=== PATIENT | female | born 1955 | race Caucasian/White ===

== ENCOUNTER 2019-03-23 19:30 | Emergency (ER) | payer OTHER ==
[~2019-03-23] VITALS: Ht 162.6 cm; Wt 104.3 kg
[2019-03-23] MEDS ORDERED: JAKAFI10 MG PO (21:51)
[2019-03-23] MEDS ORDERED: PRED5 PO (21:51)
[2019-03-23] MEDS ORDERED: ACYC800 PO (21:52)
[2019-03-23] MEDS ORDERED: SMZ PO (21:53)
[2019-03-23] MEDS ORDERED: [UNRECOGNIZED DRUG - OTHER] PO (21:53)
[2019-03-23] MEDS ORDERED: Pravachol40 MG PO (21:53)
[2019-03-23] MEDS ORDERED: METO100ER PO (21:54)
[2019-03-23] MEDS ORDERED: POTA10T PO (21:54)
[2019-03-23] MEDS ORDERED: DULO60 PO (21:55)
[2019-03-23] MEDS ORDERED: OMEP20ER PO (21:55)
[2019-03-23] MEDS ORDERED: LEVSOD75 PO (21:55)
[2019-03-23] MEDS ORDERED: OMEGA 3 500 SO1 EACH PO (21:56)
[2019-03-23] MEDS ORDERED: FURO40 PO (21:56)
[2019-03-23] MEDS ORDERED: ABAT250V (21:57)
[2019-03-23] MEDS ORDERED: METF500 PO (21:57)
[2019-03-23] MEDS ORDERED: MELATONIN5 M1 PO (21:57)
[2019-03-24] MEDS ORDERED: Keflex500 MG PO (00:22)
== END 2019-03-24 00:53 | disposition home or self-care (01) ==
LOC: ER 19:30
DX: S62.337A Displaced fracture of neck of fifth metacarpal bone, left hand, initial encounter for closed fracture (principal); S62.326A Displaced fracture of shaft of fifth metacarpal bone, right hand, initial encounter for closed fracture; S50.812A Abrasion of left forearm, initial encounter; I10 Essential (primary) hypertension; Z94.84 Stem cells transplant status; Z79.899 Other long term (current) drug therapy; Z79.52 Long term (current) use of systemic steroids; Z79.84 Long term (current) use of oral hypoglycemic drugs; W19.XXXA Unspecified fall, initial encounter
CPT/HCPCS: 12041; 29125; 73140; 90714; 96365-59; 96375; 99283-25; J0690; J1580